=== PATIENT | male | born 1970 | race Caucasian/White ===

== ENCOUNTER 2019-01-17 10:35 | Day surgery (SDC) | payer MEDICAID ==
[~2019-01-17] VITALS: Ht 170.2 cm; Wt 125.4 kg
[2019-01-17] VITALS (13 sets, daily range): BP systolic 91–131; BP diastolic 57–75
[2019-01-17] MEDS ORDERED: LORazepam 0.5 MG tablet PO PRN (10:55)
[2019-01-17] MEDS ORDERED: normal saline 1,000 ML IV SCH (10:55)
[2019-01-17] MEDS ORDERED: diphenhydrAMINE 25mg capsule PO PRN (10:55)
[2019-01-17] MEDS ORDERED: nitroGLYCERIN 0.4mg SUBLingual tab SL PRN (10:55)
[2019-01-17] MEDS ORDERED: LIDOcaine 1% (10mg/ml)w/preservative injection 20ml MDV ONE ×2 (12:03→12:38)
[2019-01-17] MEDS ORDERED: midazolam 2 mg/2 ml injection ONE (12:03)
[2019-01-17] MEDS ORDERED: fentaNYL/PF 50MCG/1 ML 2ML syringe ONE (12:03)
[2019-01-17] MEDS ORDERED: iohexol 350 MG/ML 50ML vial IV ONE ×2 (12:03→12:46)
[2019-01-17] MEDS ORDERED: iohexol 350MG/ML 100ml bottle IV ONE (12:04)
[2019-01-17] MEDS ORDERED: SIMV40TA PO (12:10)
[2019-01-17] MEDS ORDERED: CARV6.253 PO (12:10)
[2019-01-17] MEDS ORDERED: ASPI-611 PO (12:10)
[2019-01-17] MEDS ORDERED: WARF2.5T PO (12:10)
[2019-01-17] MEDS ORDERED: FURO40TA4 PO (12:10)
[2019-01-17 12:32] LABS: INR 1.7 INR; PROTHROMBIN TIME 16.7 SECONDS (9.0-12.0)
[2019-01-17] MEDS ORDERED: proCHLORperazine 10 MG/2 ml inj IV PRN (13:55)
[2019-01-17] MEDS ORDERED: ondansetron/PF 4mg/2ml inj IV PRN (13:55)
[2019-01-17] MEDS ORDERED: OXAZEpam 15mg capsule PO PRN (13:55)
== END 2019-01-17 18:50 | disposition home or self-care (01) ==
LOC: SSTAY O 10:35
PROVIDERS: ATTEND Internal Medicine Cardiovascular Disease
DX: I25.10 Atherosclerotic heart disease of native coronary artery without angina pectoris (principal)
CPT/HCPCS: 36415; 85610; 93458; 93567; 99152; 99153; A6257; J1644; J2001; J2250; J3010; J7030; Q0163; Q9967; A4620; C1760; C1769